=== PATIENT | male | born 1960 | race African-American/Black ===

== ENCOUNTER 2024-08-09 11:02 | Emergency (ER) | payer OTHER, SELFPAY ==
[2024-08-09] VITALS (23 sets, daily range): BP systolic 127–163; BP diastolic 81–92; PULSE 80–94; TEMP 36.7; O2SAT 94–98; BMI 37.0
--- NOTE | 2024-08-09 11:27 | ED_ITS ---
HPI HPI - General Adult General Chief complaint: Abdominal Pain Stated complaint: PAINS ON BOTH SIDE OF HIBS CHEST PAINS Time Seen by Provider: 08/09/24 11:07 Source: patient Mode of arrival: walk-in History of Present Illness HPI narrative: Patient was admitted to the [facility] 4 weeks ago with sepsis and kidney failure. He was discharged a week later. He reports bilateral flank pain for the last 1 week. He has a history of cancer of the right kidney and states that he has had 15% of the kidney removed in the past. He also states he has a history of atrial fibrillation. Pain patient is currently in town for rehab from his marijuana habit. Related Data Home Medications ?Medication ?Instructions ?Recorded ?Confirmed acetaminophen 500 mg tablet 1,000 mg PO BID PRN pain 08/09/24 08/09/24 apixaban 5 mg tablet (Eliquis) 5 mg PO BID 08/09/24 08/09/24 atorvastatin 40 mg tablet 40 mg PO DAILY 08/09/24 08/09/24 dulaglutide 0.75 mg/0.5 mL 0.75 mg subcut QWEEK 08/09/24 08/09/24 subcutaneous pen injector (Trulicity) gabapentin 800 mg tablet 800 mg PO BID 08/09/24 08/09/24 glyburide 5 mg tablet 5 mg PO DAILY 08/09/24 08/09/24 ibuprofen 800 mg tablet 800 mg PO BID PRN pain 08/09/24 08/09/24 lisinopril 20 1 tab PO DAILY 08/09/24 08/09/24 mg-hydrochlorothiazide 25 mg tablet melatonin 10 mg capsule 10 mg PO QPM 08/09/24 08/09/24 metformin 1,000 mg tablet 1,000 mg PO BID 08/09/24 08/09/24 metoprolol tartrate 25 mg tablet 25 mg PO BID 08/09/24 08/09/24 mometasone-formoterol HFA 100 1 puff inhalation DAILY 08/09/24 08/09/24 mcg-5 mcg/actuation aerosol inhaler (Dulera) naproxen 500 mg tablet 500 mg PO BID PRN pain 08/09/24 08/09/24 nitroglycerin 0.4 mg sublingual 0.4 mg sublingual Q5M PRN chest 08/09/24 08/09/24 tablet pain Previous Rx's ?Medication ?Instructions ?Recorded hydrocodone 5 mg-acetaminophen 325 1 tab PO TID PRN pain #12 tabs 08/09/24 mg tablet Allergies Allergy/AdvReac Type Severity Reaction Status Date / Time No Known Drug Allergies Allergy Verified 08/09/24 11:13 Opioid HPI Opioid Management Most Recent Opioid Data: Ur Phencyclidine Scrn Negative (NEGATIVE) 08/09/24 11:57 07/22 Review of Systems ROS Status of ROS 10 or more systems reviewed and unremark able except as noted in history and below [facility] Medical History Anxiety ?F41.9 - Anxiety disorder, unspecified (ICD-10) Depression ?F32.A - Depression, unspecified (ICD-10) Substance abuse ?F19.10 - Other psychoactive substance abuse, uncomplicated (ICD-10) COPD (chronic obstructive pulmonary disease) ?J44.9 - Chronic obstructive pulmonary disease, unspecified (ICD-10) Diabetes ?E11.9 - Type 2 diabetes mellitus without complications (ICD-10) HTN (hypertension) ?I10 - Essential (primary) hypertension (ICD-10) Cancer of kidney ?C64.9 - Malignant neoplasm of unspecified kidney, except renal pelvis (ICD- 10) Social History Little interest or pleasure in doing things: not at all Feeling down, depressed, or hopeless: not at all Exam Narrative Exam Narrative: Patient is afebrile. Hemodynamics are stable. HEENT exam is normal to inspection. Neck is supple. Lung sounds are clear to auscultation bilaterally. Heart has regular rate and rhythm. Abdomen is soft and benign. Patient points to the sides of the abdomen as his pain but when questioned in more detail the pain is in the paralumbar area bilaterally and he reports it going down his leg. Tone and power are normal and symmetric in both lower extremities. Speech and mentation are clear and intact. There is no facial asymmetry. He moves all extremities actively. Constitutional Vital Signs, click to edit/add: Last Vital Signs Temp 98.0 F 08/09/24 11:06 Pulse 88 08/09/24 14:01 Resp 23 H 08/09/24 14:01 BP 127/85 08/09/24 14:01 Pulse Ox 94 L 08/09/24 14:01 O2 Del Method Room Air 08/09/24 11:06 Course Vital Signs Vital signs: Vital Signs Temperature 98.0 F 08/09/24 11:06 Pulse Rate 89 08/09/24 11:06 Respiratory Rate 22 H 08/09/24 11:06 Blood Pressure 134/81 08/09/24 11:06 Pulse Oximetry 98 08/09/24 11:06 Oxygen Delivery Method Room Air 08/09/24 11:06 Temperature 98.0 F 08/09/24 11:06 Pulse Rate 88 08/09/24 14:01 Respiratory Rate 23 H 08/09/24 14:01 Blood Pressure 127/85 08/09/24 14:01 Pulse Oximetry 94 L 08/09/24 14:01 Oxygen Delivery Method Room Air 08/09/24 11:06 Medical Decision Making MDM Narrative Medical decision making narrative: EKG is interpreted by me and shows sinus rhythm at a rate of 92 beats a minute. There is left axis deviation. PACs are noted and there is no acute ST elevation. There is first-degree AV block. CT scan of the abdomen pelvis is nondiagnostic. I spoke with family physician on-call for the patient and he was able to provide some information about the patient's recent admission. The patient was recently admitted with Klebsiella sepsis at the [facility] and was treated with Zosyn. ACS was ruled out. His current medications include low-dose aspirin, Dulera, Eliquis 5 mg twice a day, gabapentin, glyburide, lisinopril, metformin, metoprolol, Seroquel and Trulicity. Patient's workup has been essentially benign. He request something for pain and is placed on a short course of [place] with initial dose given in the ED. He is referred to PCP for follow-up and may return anytime for worsening symptoms. Lab Data Labs: Lab Results 08/09/24 08/09/24 08/09/24 Range/Units 11:27 11:57 13:24 WBC 12.3 H (4.0-11.0) 10^3/uL RBC 4.00 L (4.70-6.10) 10^6/uL Hgb 11.0 L (14.0-18.0) g/dL Hct 34.3 L (42.0-54.0) % MCV 85.8 (80.0-94.0) fL MCH 27.5 (25.9-34.0) pg MCHC 32.1 (29.9-35.2) g/dL RDW 16.3 H (11.0-15.0) % Plt Count 398 (150-450) 10^3/uL MPV 8.9 L (9.5-13.5) fL Neut % (Auto) 67.5 (43.0-75.0) % Lymph % (Auto) 22.7 (20.5-60.0) % Callahan % (Auto) 7.1 (1.7-12.0) % Eos % (Auto) 2.3 (0.9-7.0) % Baso % (Auto) 0.2 (0.2-2.0) % Neut # (Auto) 8.3 H (1.4-6.5) 10^3/uL Lymph # (Auto) 2.8 (1.2-3.8) 10^3/uL Callahan # (Auto) 0.9 H (0.3-0.8) 10^3/uL Eos # (Auto) 0.3 (0.0-0.7) 10^3/uL Baso # (Auto) 0.0 (0.0-0.1) 10^3/uL Abs Immat Gran (auto) 0.03 (0.00-0.03) 10^3/uL Imm/Tot Granulo (auto) 0.2 (0.0-0.5) % Sodium 141 (136-145) mmol/L Potassium 4.7 (3.5-5.1) mmol/L Chloride 106 (98-107) mmol/L Carbon Dioxide 28.4 (21.0-32.0) mmol/L Anion Gap 11.3 BUN 20.0 H (7.0-18.0) mg/dL Creatinine 1.22 (0.70-1.30) mg/dL Est GFR ( Amer) >60 (>=60 mL/min/1.73m^2) Est GFR (Non-Af Amer) 60 (>=60 mL/min/1.73m^2) BUN/Creatinine Ratio 16.4 Glucose 103 (74-106) mg/dL Lactate 1.6 (0.4-2.0) mmol/L Calcium 9.3 (8.5-10.1) mg/dL Total Bilirubin 0.2 (0.2-1.0) mg/dL Direct Bilirubin <0.1 (0.0-0.2) mg/dL AST 15 (15-37) U/L ALT 21 (16-63) U/L Alkaline Phosphatase 96 (46-116) U/L Troponin I High Sens 9.3 (4.0-76.1) pg/mL Total Protein 7.4 (6.4-8.2) g/dL Albumin 3.2 L (3.4-5.0) g/dL Globulin 4.2 g/dL Albumin/Globulin Ratio 0.8 Lipase 18.0 (16.0-77.0) U/L Urine Color Lt. yellow (YELLOW) Urine Clarity Clear (CLEAR) Urine pH 6.0 (5.0-9.0) Ur Specific [place] 1.015 (1.005-1.025) Urine Protein Negative (NEG/TRACE) mg/dL Urine Glucose (UA) Negative (NEGATIVE) mg/dL Urine Ketones Negative (NEGATIVE) mg/dL Urine Occult Blood Negative (NEGATIVE) Urine Nitrite Negative (NEGATIVE) Urine Bilirubin Negative (NEGATIVE) Urine Urobilinogen 0.2 (0.2-1.0) EU/dL Ur Leukocyte Esterase Negative (NEGATIVE) Urine Opiates Screen Negative (NEGATIVE) Ur Buprenorphine Scrn Negative (NEGATIVE) Ur Oxycodone Screen Negative (NEGATIVE) Urine Methadone Screen Negative (NEGATIVE) Ur Barbiturates Screen Negative (NEGATIVE) U Tricyclic Antidepress Positive A (NEGATIVE) Ur Phencyclidine Scrn Negative (NEGATIVE) Ur Amphetamines Screen Negative (NEGATIVE) U Methamphetamines Scrn Negative (NEGATIVE) U Benzodiazepines Scrn Negative (NEGATIVE) Urine Cocaine Screen Negative (NEGATIVE) U Cannabinoids Screen Negative (NEGATIVE) Discharge Plan Discharge Chief Complaint: Abdominal Pain Clinical Impression: Back pain Qualifiers: Back pain location: low back pain Chronicity: acute Back pain laterality: bilateral Sciatica presence: with sciatica Sciatica laterality: bilateral sciatica Qualified Code(s): M54.42 - Lumbago with sciatica, left side Patient Disposition: Home, Self-Care Time of Disposition Decision: 13:55 Condition: Fair Mode of Transportation: Private Vehicle Prescriptions / Home Meds: New hydrocodone-acetaminophen 5-325 mg tablet 1 tab PO TID PRN (Reason: pain) Qty: 12 0RF No Action acetaminophen 500 mg tablet 1,000 mg PO BID PRN (Reason: pain) Eliquis 5 mg tablet 5 mg PO BID atorvastatin 40 mg tablet 40 mg PO DAILY Trulicity 0.75 mg/0.5 mL pen injector 0.75 mg SUBCUT QWEEK gabapentin 800 mg tablet 800 mg PO BID glyburide 5 mg tablet 5 mg PO DAILY ibuprofen 800 mg tablet 800 mg PO BID PRN (Reason: pain) lisinopril-hydrochlorothiazide 20-25 mg tablet 1 tab PO DAILY melatonin 10 mg capsule 10 mg PO QPM metformin 1,000 mg tablet 1,000 mg PO BID metoprolol tartrate 25 mg tablet 25 mg PO BID Dulera 100-5 mcg/actuation HFA aerosol inhaler 1 puff INHALATION DAILY naproxen 500 mg tablet 500 mg PO BID PRN (Reason: pain) nitroglycerin 0.4 mg tablet, sublingual 0.4 mg sublingual Q5M PRN (Reason: chest pain) Print Language: Barbadian Instructions: Acute Low Back Pain (ED) Additional Instructions: Since you take a blood thinner, do not take medications like Aleve or ibuprofen. Follow-up with your physician early next week for further management. Return for worsening symptoms. Referrals: Physician,Non-Staff, MD [Primary Care Provider] - 1 week Discharge Date/Time: 08/09/24 14:21
[2024-08-09 11:41] LABS: Basophils Percent Auto 0.2 % (0.2-2.0); Eosinophils Absolute Auto 0.3 10^3/uL (0.0-0.7); Eosinophils Percent Auto 2.3 % (0.9-7.0); Hematocrit 34.3 % (42.0-54.0); Immature Granulocytes Abs Auto 0.03 10^3/uL (0.00-0.03); Immature Granulocytes Pct Auto 0.2 % (0.0-0.5); Lymphocytes Absolute Auto 2.8 10^3/uL (1.2-3.8); Lymphocytes Percent Auto 22.7 % (20.5-60.0); Mean Corpuscular HGB Conc 32.1 g/dL (29.9-35.2); Mean Corpuscular Hemoglobin 27.5 pg (25.9-34.0); Mean Corpuscular Volume 85.8 fL (80.0-94.0); Mean Platelet Volume 8.9 fL (9.5-13.5); Monocytes Absolute Auto 0.9 10^3/uL (0.3-0.8); Monocytes Percent Auto 7.1 % (1.7-12.0); Neutrophils Absolute Auto 8.3 10^3/uL (1.4-6.5); Neutrophils Percent Auto 67.5 % (43.0-75.0); Platelet Count 398 10^3/uL (150-450); Red Cell Distribution Width 16.3 % (11.0-15.0); White Blood Count 12.3 10^3/uL (4.0-11.0)
[2024-08-09 12:09] LABS: Bilirubin Urine NEGATIVE (NEGATIVE); Blood Urine NEGATIVE (NEGATIVE); Clarity Urine CLEAR (CLEAR); Color Urine LT. YELLOW (YELLOW); Glucose Urine UA NEGATIVE (NEGATIVE); Ketones Urine NEGATIVE (NEGATIVE); Leukocyte Esterase Urine NEGATIVE (NEGATIVE); Nitrite Urine NEGATIVE (NEGATIVE); Protein Urine NEGATIVE (NEG/TRACE); Specific Gravity Urine 1.015 (1.005-1.025); Urobilinogen Urine 0.2 EU/dL (0.2-1.0)
[2024-08-09 12:10] LABS: Urine Microscopic Indicated NO
[2024-08-09 12:17] LABS: Lactate/Lactic Acid 1.6 mmol/L (0.4-2.0)
[2024-08-09 12:17] LABS: Amphetamine Screen Urine NEGATIVE (NEGATIVE); Barbiturates Screen Urine NEGATIVE (NEGATIVE); Benzodiazepines Screen Urine NEGATIVE (NEGATIVE); Buprenorphine Screen Urine NEGATIVE (NEGATIVE); Cannabinoid Screen Urine NEGATIVE (NEGATIVE); Cocaine Screen Urine NEGATIVE (NEGATIVE); Methadone Screen Urine NEGATIVE (NEGATIVE); Methamphetamines Screen Urine NEGATIVE (NEGATIVE); Opiate Screen Urine NEGATIVE (NEGATIVE); Oxycodone Screen Urine NEGATIVE (NEGATIVE); Phencyclidine Screen Urine NEGATIVE (NEGATIVE); Tricyclic Antidepressant Urine POSITIVE (NEGATIVE)
[2024-08-09 12:24] LABS: Alanine Aminotransferase 21 U/L (16-63); Albumin Globulin Ratio 0.8; Albumin Level 3.2 g/dL (3.4-5.0); Alkaline Phosphatase 96 U/L (46-116); Anion Gap 11.3; Aspartate Amino Transferase 15 U/L (15-37); BUN Creatinine Ratio 16.4; Bilirubin Direct <0.1 mg/dL (0.0-0.2); Bilirubin Total 0.2 mg/dL (0.2-1.0); Calcium 9.3 mg/dL (8.5-10.1); Carbon Dioxide 28.4 mmol/L (21.0-32.0); Chloride 106 mmol/L (98-107); Estimated GFR (African America >60 (>=60 mL/min/1.73m^2); Estimated GFR (Non-African Ame 60 (>=60 mL/min/1.73m^2); Globulin 4.2 g/dL; Glucose 103 mg/dL (74-106); Potassium 4.7 mmol/L (3.5-5.1); Sodium 141 mmol/L (136-145); Total Protein 7.4 g/dL (6.4-8.2)
--- NOTE | 2024-08-09 13:11 | ECG_ITS ---
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
[2024-08-09 13:53] LABS: Troponin I High Sensitivity 9.3 pg/mL (4.0-76.1)
[2024-08-09] MEDS: HYDROCODONE/ACET 5-325 MG TABLET 1 TAB PO (14:07)
== END 2024-08-09 14:21 | disposition home or self-care (01) ==
PROVIDERS: Emergency Provider Emergency Medicine
DX: R10.84 Generalized abdominal pain (principal); M54.42 Lumbago with sciatica, left side
CPT/HCPCS: 36415; 74176; 80048; 80076; 80307; 81003; 83605; 83690; 84484; 85025; 93005; 99285